=== PATIENT | male | born 1985 | race Caucasian/White ===

== ENCOUNTER 2022-11-30 09:31 | Emergency (ER) | payer OTHER ==
[~2022-11-30] VITALS: Ht 177.8 cm; Wt 88.6 kg
[2022-11-30] MEDS ORDERED: CLON-595 PO (10:07)
[2022-11-30 10:37] VITALS: BP 136/79
== END 2022-11-30 10:39 | disposition home or self-care (01) ==
LOC: EMS 09:34
DX: F41.9 Anxiety disorder, unspecified (principal); I10 Essential (primary) hypertension
CPT/HCPCS: 99283; Z7502